=== PATIENT | female | born 1975 | race Caucasian/White ===

== ENCOUNTER 2018-12-11 15:07 | Emergency (ER) | payer MEDICAID ==
[~2018-12-11] VITALS: Ht 160 cm; Wt 89.8 kg
[2018-12-11 15:24] VITALS: Ht 160 cm; Wt 89.8 kg
[2018-12-11 19:51] VITALS: BP 109/61
== END 2018-12-11 19:51 | disposition home or self-care (01) ==
LOC: ED 15:07
DX: S16.1XXA Strain of muscle, fascia and tendon at neck level, initial encounter (principal); Z90.710 Acquired absence of both cervix and uterus; Z90.89 Acquired absence of other organs; V49.49XA Driver injured in collision with other motor vehicles in traffic accident, initial encounter; Y93.I9 Activity, other involving external motion; Y92.413 State road as the place of occurrence of the external cause; Y99.8 Other external cause status
CPT/HCPCS: J1885